=== PATIENT | female | born 2005 | race Caucasian/White ===

== ENCOUNTER 2025-02-01 14:15 | Inpatient (IN) ==
--- NOTE | 2025-02-01 15:20 | Emergency Department Note ---
Impression & Plan Retropharyngeal abscess, CAP (community acquired pneumonia), Strep tonsillitis, Mononucleosis, COVID ED Provider Note CHIEF COMPLAINT: Strep and COVID positive, symptoms not resolving with antibiotic HISTORY OF PRESENTING ILLNESS: The patient is a 19-year-old female who presents to the emergency department reporting testing positive for COVID and strep 2 days ago. She was placed on amoxicillin and has taken 5 doses but reports that her symptoms have been worsening. Notes significant pain in her throat, swelling, difficulty eating and drinking, and SOB. She was also given a dose of steroid without improvement. She denies fever, chest pain, nausea, vomiting, abdominal pain, diarrhea, urinary symptoms. She is tolerating oral secretions and fluids. REVIEW OF SYSTEMS: See HPI for pertinent positives and pertinent negatives. ALLERGIES: NKDA MEDICATIONS: See below PAST MEDICAL HISTORY: See below PHYSICAL EXAM: VITALS: Vitals are noted on the nurses note and reviewed by myself. Vital signs stable. GENERAL: 19-year-old female, ill-appearing, wearing a mask, muffled voice, in no acute distress, nondiaphoretic, well-developed well-nourished. SKIN: Capillary refill less than 2 seconds. No rash on exam. HEENT: Normocephalic. PERRLA. EOMI. Nasal congestion. Mucous membranes moist. TM visualized without abnormality bilaterally. Throat with significant tonsillar edema, tonsillar erythema, uvula is midline. Neck is supple. Bilateral neck swelling worse on left. HEART: Regular rate and rhythm without murmurs gallops or rubs. LUNGS: CTA BL without wheezes, rales or rhonchi. No retractions or accessory muscle use. ABDOMEN: Soft, nontender, without masses or organomegaly. No guarding or rebound tenderness. MUSCULOSKELETAL: No gross musculoskeletal defects. NEURO: Patient was alert and oriented to person place and time. No focal neurological deficits. DIFFERENTIAL DIAGNOSIS: Viral infection, influenza, COVID-19, infectious mononucleosis, tonsillar abscess, bacterial infection, allergic rhinitis, sinusitis, pneumonia, pneumothorax, bronchitis, GERD, cardiac cause, among others. ED COURSE AND MEDICAL DECISION MAKING: HISTORY FROM INDEPENDENT HISTORIAN: The patient herself. MEDICATIONS GIVEN: Decadron 10 mg IV, Toradol 15 mg IV INTERPRETATION OF LABS: I interpreted the labs with full lab results as below in the lab section of this note. Pertinent lab results discussed in the MDM section below. INTERPRETATION OF IMAGING: Imaging studies were interpreted by myself and read by radiology as per the imaging section of this note. CT neck soft tissue - Tonsillar enlargement consistent with infection. Irregularity concerning for abscess noted. Suspected right upper lobe pneumonia. Chronic sinusitis. Chest x-ray - Early pneumonia right midlung ESCALATION OF CARE CONSIDERED: Escalation of care was considered as patient is known COVID and strep positive, on antibiotics, with worsening symptoms and swelling. In the ER was also diagnosed with mono, pneumonia, and a retropharyngeal abscess. The patient was taken to the OR for drainage and admitted to medicine. CONSULTATIONS: On-call ENT provider Dr. Guerrier - Presented the patient to the provider. They evaluated the images confirming a retropharyngeal abscess. They were able to contact the OR team and scheduled the patient for drainage in an hour. Recommended admitting the patient to medicine. On-call hospitalist - Discussed positive COVID and strep diagnoses 2 days ago. In the ER workup shows positive for mono, right upper lobe pneumonia, and retropharyngeal abscess. Discussed my conversation with ENT and that the abscess would be drained this evening. They agreed to admitting the patient to medicine. MDM SUMMARY: I evaluated the 19-year-old female who presents to the ER due to positive strep and COVID diagnoses with worsening symptoms. See HPI and PE above. Patient's vitals are stable and she is afebrile. She is well-appearing and tolerating oral secretions. Decadron and Toradol given for symptom management. Labs obtained showing leukocytosis WBC 13.29. Hemodynamically stable. No electrolyte abnormality. No MARIA VICTORIA. Troponin 4.8. negative. Monoscreen positive. Chest x-ray obtained showing early right midlung pneumonia. CT neck soft tissue shows tonsillar enlargement and irregularity concerning for abscess. CT confirms suspected right upper lobe pneumonia. All laboratory and imaging results were thoroughly reviewed with the patient. A consultation with ENT can be seen in detail above. Patient scheduled to go to the OR in an hour for drainage. Last oral intake was yesterday. Consultation with on-call hospitalist can be seen in detail above. Discussed treatment plan with the patient's mother on the phone. Patient is agreeable to the outlined treatment plan and all questions answered. The patient was admitted in stable condition. DIAGNOSIS: Retropharyngeal abscess, CAP, strep tonsillitis, mononucleosis, COVID The chart was completed utilizing [employer] Speech voice recognition software. Grammatical errors, random word insertions, pronoun errors, and incomplete sentences are an occasional consequence of this system due to software limitations, ambient noise, and hardware issues. Any formal questions or concerns about the content, text, or information contained within the body of this dictation should be directly addressed to the provider for clarification. 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 Beliefs That Will Affect Care: None Current Living Situation Comment: Apartment Feels Safe at Home: Yes Assistive Devices: Contacts and Glasses Allergies Allergies Allergy/AdvReac Type Severity Reaction Status Date / Time No Known Allergies Allergy Verified 02/01/25 18:19 Home Meds Home Medications Medication Instructions Recorded Confirmed levonorgestrel 17.5 mcg/24 hr (up 17.5 mcg intrauterine CONTINOUS 02/01/25 02/01/25 to 5 yrs) 19.5mg intrauterine device (Kyleena) spironolactone 50 mg tablet 0 mg PO HS 02/01/25 02/01/25 Previous Rx's Medication Instructions Recorded amoxicillin 875 mg-potassium 1 tab PO BID #19 tabs 02/02/25 clavulanate 125 mg tablet azithromycin 500 mg tablet 500 mg PO DAILY #1 tab 02/02/25 methylprednisolone 4 mg tablets in 4 mg PO UD #21 ea 02/02/25 a dose pack (Medrol (Issa)) Results & Data (ED) Vital Signs Vital Signs - 24 hr 02/01/25 14:27 Temperature 36.8 C Temperature Source Temporal Artery Scan Pulse Rate 104 H Respiratory Rate 18 Respiratory Effort / Characteristics Non-Labored Spontaneous Respiratory Depth Normal Blood Pressure 126/82 Blood Pressure Mean 96 Blood Pressure Position Sitting Pulse Oximetry 97 Oxygen Delivery Method Room Air Sepsis Recent Fever Within 48 Hours No Sepsis New/Unexplained Change in Mental Status No Sepsis Action Taken by Nursing No Action Required Laboratory Data 02/02/25 06:14 02/02/25 06:14 Lab Results 02/01/25 Range/Units 15:01 WBC 13.29 H (4.8-10.8) K/ul RBC 5.17 (4.20-5.40) M/uL Hgb 15.4 (12.0-16.0) g/dl Hct 46.8 (37.0-47.0) % MCV 90.5 (80.0-100.0) fL MCH 29.8 (25.0-34.0) pg MCHC 32.9 (32.0-36.0) g/dL RDW Std Deviation 41.8 (36.4-46.3) fL RDW Coeff of Ken 12.6 (11.5-14.5) % Plt Count 251 (130-400) K/uL MPV 9.6 (9.4-12.4) fL Neutrophils % (Manual) 49 % Lymphocytes % (Manual) 8 % Reactive Lymphs % (Man) 41 % Monocytes % (Manual) 2 % Neutrophils # (Manual) 6.51 H (1.40-6.50) K/uL Total Absolute Neuts 6.51 H (1.4-6.5) K/uL Lymphocytes # (Manual) 1.06 L (1.2-3.4) K/uL Reactive Lymphs # 5.45 K/uL Total Abs Lymphocytes 6.51 H (1.2-3.4) K/uL Monocytes # (Manual) 0.27 (0.11-0.59) K/uL Sodium 138 (136-145) mmol/L Potassium 4.4 (3.5-5.1) mmol/L Chloride 104 (98-107) mmol/L Carbon Dioxide 27 (21-32) mmol/L Anion Gap 7 (3-11) BUN 9 (6-23) mg/dl Creatinine 0.79 (0.6-1.2) mg/dl Est Cr Clr Drug Dosing 89.8 ml/min eGFR 109.75 BUN/Creatinine Ratio 11.4 (10-20) Glucose 84 (70-99(Fasting)) mg/dl Calcium 9.4 (8.6-10.3) mg/dl Total Bilirubin 0.3 (0.2-1.0) mg/dl AST 30 (13-39) U/L ALT 26 (7-52) U/L Alkaline Phosphatase 70 (34-104) U/L Troponin I High Sens 4.8 (0-14) pg/ml Total Protein 8.0 (6.0-8.3) gm/dl Albumin 4.2 (3.4-5.0) gm/dl Globulin 3.8 (2.5-4.0) gm/dl Albumin/Globulin Ratio 1.1 (0.9-2) HCG, Qual Negative (Negative) Monoscreen Positive A (Negative) Administered Medications Discontinued Medications Acetaminophen (Acetaminophen 325 Mg Tab) 650 mg PO Q4H PRN PRN Reason: Pain or Fever Stop: 03/03/25 21:30 Last Admin: 02/02/25 06:33 Dose: 650 mg Documented By: MARGARITO Azithromycin (Azithromycin 250 Mg Tab) 500 mg PO HS LYNN Stop: 02/06/25 21:30 Last Admin: 02/01/25 22:51 Dose: 500 mg Documented By: MARTA Dexamethasone Sodium Phosphate (DexamethasonePf 10 Mg/Ml Vial) 10 mg IV NOW ONE Stop: 02/01/25 15:48 Last Admin: 02/01/25 16:38 Dose: 10 mg Documented By: YVES Guaifenesin (Guaifenesin 600 Mg Tabcr) 1,200 mg PO Q12 LYNN Stop: 03/03/25 21:30 Last Admin: 02/02/25 08:59 Dose: 1,200 mg Documented By: Admin: 02/01/25 22:01 Dose: 1,200 mg Documented By: MARTA Ampicillin Sodium/Sulbactam Sodium (Unasyn) 3,000 mg in 100 mls @ 200 mls/hr IV NOW STA Stop: 02/01/25 20:49 Last Infusion: 02/01/25 22:33 Dose: Infused Documented By: Admin: 02/01/25 22:02 Dose: 200 mls/hr Documented By: MARTA Sodium Chloride (Nss) 1,000 mls @ 100 mls/hr IV .Q10H LYNN Stop: 02/04/25 21:30 Last Admin: 02/02/25 08:58 Dose: 100 mls/hr Documented By: Infusion: 02/02/25 08:16 Dose: Infused Documented By: Admin: 02/01/25 22:04 Dose: 100 mls/hr Documented By: MARTA Ceftriaxone Sodium (Rocephin) 2,000 mg in 50 mls @ 100 mls/hr IV Q24H LYNN Stop: 02/07/25 05:59 Last Infusion: 02/02/25 08:40 Dose: Infused Documented By: Admin: 02/02/25 07:44 Dose: 100 mls/hr Documented By: CLAU Metronidazole (Flagyl) 500 mg in 100 mls @ 100 mls/hr IV Q8H LYNN; Protocol Stop: 02/11/25 21:30 Last Infusion: 02/02/25 15:46 Dose: Infused Documented By: Admin: 02/02/25 14:33 Dose: 100 mls/hr Documented By: Infusion: 02/02/25 08:17 Dose: Infused Documented By: Admin: 02/02/25 06:28 Dose: 100 mls/hr Documented By: Infusion: 02/01/25 23:46 Dose: Infused Documented By: Admin: 02/01/25 22:49 Dose: 100 mls/hr Documented By: MARTA Dexamethasone 6 mg/ Syringe 1.5 mls @ 1 mls/min IV Q24H LYNN Stop: 03/04/25 08:59 Last Admin: 02/02/25 08:59 Dose: 1 mls/min Documented By: CLAU Ioversol (Optiray 320 100ml) 90 ml IV ONCE ONE Stop: 02/01/25 16:16 Last Admin: 02/01/25 16:15 Dose: 90 ml Documented By: MONIE Ketorolac Tromethamine (Ketorolac Tromethamine 15 Mg/Ml Vial) 15 mg IV NOW STA Stop: 02/01/25 15:48 Last Admin: 02/01/25 16:38 Dose: 15 mg Documented By: YVES Ketorolac Tromethamine (Ketorolac Tromethamine 15 Mg/Ml Vial) 15 mg IV Q6H PRN PRN Reason: Pain Stop: 02/06/25 21:30 Last Admin: 02/01/25 22:01 Dose: 15 mg Documented By: MARTA Oxymetazoline HCl (Oxymetazoline 0.05% 30 Ml Btl) Confirm Administered Dose 150 sprays .ROUTE .STK-MED ONE Stop: 02/01/25 19:03 Last Admin: 02/01/25 20:15 Dose: 150 sprays Documented By: [id number] Spironolactone (Spironolactone 25 Mg Tab) 50 mg PO HS LYNN Stop: 03/03/25 21:30 Last Admin: 02/01/25 22:01 Dose: 50 mg Documented By: MARTA Discharge Plan Visit Data Chief Complaint: Illness Stated Complaint: STREP AND COVID SYMPTOMS NOT RESOLVING W/ANITBIOTI ED Provider: [facility] ED Midlevel Provider: Idalmis Wills Discharge Problem: Retropharyngeal abscess, CAP (community acquired pneumonia), Strep tonsillitis, Mononucleosis, COVID Patient Disposition: Admitted As Inpatient Condition: Good Discharge Instructions Interventions: ED Discharge Assessment Last Done: 02/01/25 18:34 Discharge Problem: CAP (community acquired pneumonia) Qualifiers: Laterality: right Lung location: upper lobe of lung Qualified Code(s): J18.9 - Pneumonia, unspecified organism Mononucleosis Qualifiers: Infectious mononucleosis etiology: unspecified organism
[2025-02-01 15:41] LABS: Alanine Aminotransferase 26.0 U/L (7-52); Albumin Globulin Ratio 1.1 (0.9-2); Albumin Level 4.2 gm/dl (3.4-5.0); Alkaline Phosphatase 70.0 U/L (34-104); Anion Gap 7.0 (3-11); Bilirubin,Total 0.3 mg/dl (0.2-1.0); Blood Urea Nitrogen 9.0 mg/dl (6-23); Calcium 9.4 mg/dl (8.6-10.3); Carbon Dioxide 27.0 mmol/L (21-32); Chloride 104.0 mmol/L (98-107); Creatinine Clr Calc Pharmacy 89.8 ml/min; Globulin 3.8 gm/dl (2.5-4.0); Glucose 84.0 mg/dl (70-99(Fasting)); Potassium 4.4 mmol/L (3.5-5.1); Sodium 138.0 mmol/L (136-145); Total Protein 8.0 gm/dl (6.0-8.3)
--- NOTE | 2025-02-01 15:49 | XRay Report ---
XR chest 1V not portable CLINICAL HISTORY: Chest pain, nonspecific COMPARISON STUDY: None FINDINGS: Heart size and pulmonary vasculature are normal. There is a small area of reticular nodular opacity at the right mid lung, likely early pneumonia. No lobar consolidation or pleural effusion. N o pneumothorax. IMPRESSION: Early pneumonia right midlung. ACT 112: Negative or not required by law. Electronically signed by: Ralph Deng M.D. 02/01/2025 3:47 PM
[2025-02-01 16:11] LABS: Reactive Lymphocytes % (manual) 41 %
[2025-02-01] MEDS: OPTIRAY 320 100ml IV ONE (16:15)
[2025-02-01 16:37] LABS: ALC (manual) 6.51 K/uL (1.2-3.4); ANC (manual) 6.51 K/uL (1.4-6.5); Hematocrit (blood only) 46.8 % (37.0-47.0); Hemoglobin 15.4 g/dl (12.0-16.0); Mean Corpuscular Hemoglobin 29.8 pg (25.0-34.0); Mean Corpuscular Volume 90.5 fL (80.0-100.0); Platelet Count 251 K/uL (130-400); RDW Standard Deviation 41.8 fL (36.4-46.3); Reactive Lymphocytes # (manual) 5.45 K/uL; Red Blood Count 5.17 M/uL (4.20-5.40); White Blood Count 13.29 K/ul (4.8-10.8)
[2025-02-01] MEDS: dexAMETHasone**PF** 10 MG/ML VIAL IV ONE (16:38)
[2025-02-01] MEDS: KETOROLAC TROMETHAMINE 15 MG/ML VIAL IV STA (16:38)
--- NOTE | 2025-02-01 16:44 | CT Scan Report ---
Clinical history: Swollen neck Technique: Axial computed tomography images were obtained of the neck after the administration of intravenous contrast Findings: The adenoid and palatine tonsils are enlarged and demonstrate increased enhancement. There are multiple enlarged parapharyngeal, carotid, and posterior triangle space lymph nodes bilaterally, measuring up to 1.9 cm in short axis. There are small and borderline enlarged parotid and submandibular space lymph nodes also. There is an irregularly-shaped fluid collection with rim enhancement along the inferior aspect of the adenoid tonsil, which could represent an abscess. This measures up to 4.3 x 1.2 x 3.5 cm The salivary glands appear unremarkable. No foreign body is evident There is no sign of epiglottitis or prevertebral inflammation. No definite abnormality of the larynx is noted. The thyroid gland appears normal. There is mucosal thickening in the maxillary, ethmoid, and sphenoid sinuses. The mastoid air cells appear clear. There are mild larger and groundglass opacities in the visualized right upper lobe that may be due to pneumonia. The visualized brain appears normal. No osseous abnormality is seen Impression: 1. Tonsillar enlargement and bilateral neck adenopathy, consistent with infection 2. 4.3 x 3.5 x 1.2 cm irregularly shaped rim-enhancing fluid collection along the inferior aspect of the adenoid tonsil, concerning for an abscess 3. Suspected right upper lobe pneumonia 4. Chronic sinusitis 5. No sign of epiglottitis ACT 112: Positive. There are findings on this exam that require communication between the performing entity and the patient following Patient Test Result Information Act ([place] ACT 112) guidelines. Electronically signed by Gerson Bell 02-01-2025 4:44 PM
--- NOTE | 2025-02-01 17:47 | ENT Consultation ---
Date of Consultation February 01, 2025 Assessment & Plan (1) Retropharyngeal abscess: Plan 19yF with rim-enhancing retropharyngeal abscess in setting of COVID, strep, mono infections. To OR for I+D. The risks and benefits were discussed in detail and the patient elected to proceed. Recommend admission to hospitalist service after. History of Present Illness History of Present Illness 19yF with throat pain, odynophagia progressive over several days. Started on abx Wednesday for positive strep, COVID. Symptoms continued to worsen so presented to ED. WBC 13 CT neck with contrast showed per my read a rim-enhancing retropharyngeal fluid collection, bilateral tonsillitis, bilateral cervical adenopathy. Radiology read also described RUL PNA Stephenson positive Allergies Allergy/AdvReac Type Severity Reaction Status Date / Time No Known Allergies Allergy Verified 02/01/25 18:19 Home Medications Medication Instructions Recorded Confirmed Type amoxicillin 500 mg capsule 500 mg PO BID 02/01/25 02/01/25 History levonorgestrel 17.5 mcg/24 hr (up 17.5 mcg intrauterine CONTINOUS 02/01/25 02/01/25 History to 5 yrs) 19.5mg intrauterine device (Kyleena) spironolactone 50 mg tablet 0 mg PO HS 02/01/25 02/01/25 History Patient History Medical History (Updated 02/01/25 @ 19:02 by Jose Daniel Lacey MD) Exercise-induced asthma Surgical History (Updated 02/01/25 @ 19:02 by Jose Daniel Lacey MD) Hx of wisdom tooth extraction Social History Smoking Status: Never smoker Preferred Language: Japanese Feels Safe at Home: Yes Review of Systems Review of Systems: A 10-point ROS is negative except as noted above Physical Exam 2 Physical Exam: WNWD, NAD EOMI, normal sclera Nares patent, no external deformity External ears normal Normal voice Nonlabored respirations, no stridor Managing secretions AAO x3 Moving all extremities spontaneously Results & Data Vital Signs (Past 12 Hours) Vital Signs Temp Pulse Resp BP Pulse Ox O2 Del Method 02/01/25 14:27 36.8 C 104 H 18 126/82 97 Room Air PG Care Time/CCT Total # of Minutes Spent Total Time Spent with Patient: Total time spent is greater than 50% in coordination of care (as documented) at patient's floor/unit and/or counseling patient: Coding Level of Care Code 50239 IN/OBS CONSULT LVL 4,60M Diagnoses Retropharyngeal abscess J39.0
[2025-02-01] MEDS ORDERED: ONDANSETRON INJ 2 MG/ML 2 ML VIAL ONE (17:59)
[2025-02-01] MEDS ORDERED: PROPOFOL IV EMULSION 10 MG/ML 20 ML VIAL IV ONE (17:59)
[2025-02-01] MEDS ORDERED: LIDOCAINE 2% 2 ML VIAL/AMP(20MG/ML) INFIL ONE (17:59)
[2025-02-01] MEDS ORDERED: DEXAMETHASONE SOD INJ 4 MG/ML VIAL ONE (17:59)
[2025-02-01] MEDS ORDERED: MIDAZOLAM HCL 1 MG/ML 2ML VIAL ONE (18:09)
--- NOTE | 2025-02-01 18:14 | History & Physical Report ---
"Date of Service February 01, 2025 Assessment & Plan (1) Retropharyngeal abscess: (2) CAP (community acquired pneumonia): (3) Strep tonsillitis: (4) Mononucleosis: (5) COVID: Plan 19-year-old female with no significant past medical history presents with progressive dysphagia and odynophagia in the setting of testing positive for strep and COVID 2 days prior to admission. Workup in ED revealed retropharyngeal abscess, right upper lobe pneumonia, and positive mononucleosis. She was admitted for management of such. #Retropharyngeal abscess | CAP RUL | Strep - ENT consulted - going to OR for urgent I&D of retropharyngeal abscess - Ceftriaxone and azithromycin for CAP - Metronidazole for anaerobic coverage of retropharyngeal abscess - Dexamethasone 6 mg daily - Mucinex 1200 mg twice daily - DuoNebs available as needed - Maintenance IV fluids with NSS at 100 mL/h - Pain control: Tylenol as needed, Toradol as needed - Will defer diet postoperatively to ENT #Covid | Mononucleosis - Airborne precautions - Supportive measures as above #Acnecontinue spironolactone 50 mg HS VTE PPx: Low risk. Encourage ambulation. Consider chemoprophylaxis if extended hospitalization Dispo: Admit to med/tele Updated aunt via phone call and roommate in person at bedside History of Present Illness Chief Complaint: Shortness of breath, throat pain/swelling Primary Care Provider: [facility] Lester is a pleasant 19-year-old woman with no significant past medical history. At the time of my exam, the patient was lying in bed in no acute distress with her roommate present at bedside and her aunt on the phone. She states she began developing congestion last Friday 01/26, then developed a sore throat on Monday 01/29. She went to urgent care on Tuesday 01/30 and tested positive for strep and COVID at that time and was given a prescription for amoxicillin and prednisone. She presented to the ED today due to no improvement on antibiotic therapy and progressive dysphagia and odynophagia. She felt feverish/chilled earlier this week. She has not had an appetite for a few days. She has had an intermittent headache that resolves with Advil. She has been fatigued throughout this course. No significant coughing or sputum production. No shortness of breath or difficulty breathing. No chest pain. She denies developing a rash while on amoxicillin. She had many episodes of bronchiolitis as a child and utilizes nebulizers at home frequently. She does not have a history of recurrent bacterial infections. She is fully vaccinated. She take spironolactone daily for acne, no other daily medications. She is fully vaccinated. 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 She drinks alcohol socially and denies any tobacco use including vaping. Vitals on admission significant for mild tachycardia in the low 100s; vitals otherwise stable. Labs on admission are significant for mild leukocytosis with WBC 13.29 and a positive monoscreen. Hemoglobin WNL. Electrolytes WNL. Renal function WNL. Liver enzymes WNL. Troponin negative at 4.8. CXR on admission reveals early pneumonia of the right midlung. Soft tissue neck CT reveals tonsillar enlargement and bilateral neck adenopathy consistent with infection, 4.3 x 3.5 x 1.2 cm irregularly-shaped rim-enhancing fluid collection along the inferior aspect of the adenoid tonsil concerning for an abscess, suspected right upper lobe pneumonia, chronic sinusitis, no signs of e piglottitis. We discussed code status, patient wishes to be a full code. Allergies Allergy/AdvReac Type Severity Reaction Status Date / Time No Known Allergies Allergy Verified 02/01/25 18:19 Home Medications Medication Instructions Recorded Confirmed Type amoxicillin 500 mg capsule 500 mg PO BID 02/01/25 02/01/25 History levonorgestrel 17.5 mcg/24 hr (up 17.5 mcg intrauterine CONTINOUS 02/01/25 02/01/25 History to 5 yrs) 19.5mg intrauterine device (Kyleena) spironolactone 50 mg tablet 0 mg PO HS 02/01/25 02/01/25 History Past Med/Surg History Problem List (Updated 02/01/25 @ 19:10 by Meena Sprague PA-C) COVID Mononucleosis Strep tonsillitis CAP (community acquired pneumonia) Encounter for pre-operative examination Retropharyngeal abscess Medical History (Updated 02/01/25 @ 19:10 by Meena Sprague PA-C) Exercise-induced asthma Surgical History (Updated 02/01/25 @ 19:02 by Jose Daniel Lacey MD) Hx of wisdom tooth extraction Social History Smoking Status: Never smoker Hx Alcohol Use: Yes Hx Substance Use: No Preferred Language: [place] Irish [employer]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 Skin: Warm, dry. No rashes or peripheral edema noted. HEENT: PERRLA. Cervical adenopathy bilaterally. Enlarged tonsils bilaterally. Managing secretions independently. No stridor. Cardiac: Slightly tachycardic rate with regular rhythm without murmurs gallops or rubs. Pulm: Clear to auscultation bilaterally without wheezes, rales or rhonchi. Normal respiratory effort. 97% on room air. Abdominal: Soft, nontender, nondistended. Bowel sounds present. Neuro: A&O x3. No focal neurological deficits. Results & Data Results & Data Vital Signs (Past 12 Hours) Vital Signs Temp Pulse Resp BP Pulse Ox O2 Del Method 02/01/25 14:27 98.2 F 104 H 18 126/82 97 Room Air Laboratory Results Reviewed CBC with differential Reviewed CMP, chemistries Reviewed serology Diagnostic Findings Reviewed CXR Reviewed soft tissue neck CT Supervising Physician Co-Signing Physician Notes Attending Attestation & Admit Note: Chart reviewed in detail, admit care plan d/w PA Meena Sprague. I agree w/ the benson components of her admission documentation. Of note - shortly after Ms Sprague placed admission orders, the patient was taken urgently to the OR with Dr Guerrier from ENT for I/D of her retropharyngeal abscess. Thus, I was not able to perform a bedside visit or exam since she was no longer in the emergency department. 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 Symptoms persisted into this week and she was ultimately diagnosed with COVID-19 as well as strep throat. Placed on amoxicillin & prednisone. Her throat symptoms persisted despite the above, and she later developed dysphagia. She came to the ER this evening and, in addition to the recent COVID & strep, monospot was positive. CT neck showed a retropharyngeal abscess as well as infiltrates of the right lung upper lobe. No epiglottitis was seen. ENT was consulted, and Dr Guerrier advised I/D of the abscess. PMH/PSH/allergies/meds/sochx - reviewed Vitals stable, O2 sats stable Labs reviewed - Prentiss+, atypical lymphs on CBC, leukocytosis, HCG negative Imaging reviewed A/P: 1. Strep & Prentiss pharyngitis; COVID can also contribute 2. Retropharyngeal abscess in the setting of #1 above 3. COVID-19 4. Right-sided pneumonia - likely viral - both COVID and Prentiss can cause such; can't rule out bacterial process of the right lung, however 5. Sinus disease on CT - likely due to COVID infection -To OR with Dr Guerrier for I/D of abscess -airborne isolation -dexamethasone steroid for COVID; this will also help pharyngeal swelling -rocephin/azithromycin/flagyl to cover the sinuses, throat, and right lung -pain meds prn -IV fluids -defer diet to ENT Chapo Francisco MD PG Care Time/CCT Total # of Minutes Spent Total Time Spent with Patient: Total time spent is greater than 50% in coordination of care (as documented) at patient's floor/unit and/or counseling patient: Coding Level of Care Code 58863 INT INP/OBS CARE 3/75MIN Diagnoses Retropharyngeal abscess J39.0 CAP (community acquired pneumonia) J18.9 Strep tonsillitis J03.00 Mononucleosis B27.90 COVID U07.1"
[2025-02-01] MEDS ORDERED: ROCURONIUM BROMIDE 10 MG/ML 5 ML VIAL IV ONE (18:31)
[2025-02-01] MEDS ORDERED: SUCCINYLCHOLINE CHLORIDE 20 MG/ML 10 ML VIAL IV ONE (18:44)
[2025-02-01] MEDS ORDERED: ONDANSETRON INJ 2 MG/ML 2 ML VIAL IV PRN ×2 (19:02→21:31)
[2025-02-01] MEDS ORDERED: ATROPINE SULFATE 0.1 MG/ML 10ML SYR IV PRN (19:02)
[2025-02-01] MEDS ORDERED: PROMETHAZINE HCL 6.25 MG in SODIUM CHLORIDE 0.9% 50 ML IV PRN (19:02)
[2025-02-01] MEDS ORDERED: KETOROLAC 30 MG/ML VIAL IV PRN (19:02)
--- NOTE | 2025-02-01 19:02 | Anesthesiology Consultation ---
Date of Service February 01, 2025 Assessment & Plan (1) Encounter for pre-operative examination: Chart Review Chart Review: Acceptable Risk for Surgery History Surgery Operation Date: 02/01/25 18:00 Proposed Procedures p Incision and Drainage Retropharyngeal Abscess - Gamal Guerrier MD Height/Weight Height: 5 ft 2 in Weight: 50.7 kg Allergies Allergy/AdvReac Type Severity Reaction Status Date / Time No Known Allergies Allergy Verified 02/01/25 18:19 Medications Home Medications Medication Instructions Recorded Confirmed Last Taken amoxicillin 500 mg capsule 500 mg PO BID 02/01/25 02/01/25 02/01/25 08:00 levonorgestrel 17.5 mcg/24 hr (up 17.5 mcg intrauterine CONTINOUS 02/01/25 02/01/25 Unknown to 5 yrs) 19.5mg intrauterine device (Kyleena) spironolactone 50 mg tablet 0 mg PO HS 02/01/25 02/01/25 01/31/25 NPO Last Intake of Fluids Comment: Early today Last Intake of Solids Comment: Yesterday Past Medical History Medical History (Updated 02/01/25 @ 19:02 by Jose Daniel Lacey MD) Exercise-induced asthma Exercise / Class Metabolic Activity 1 > 8 Run/Swim/Ski/Tennis Past Surgical History Surgical History (Updated 02/01/25 @ 19:02 by Jose Daniel Lacey MD) Hx of wisdom tooth extraction Past Anesthesia History No Hx of Anesthesia Complications History of PONV No Hx of PONV and No Hx of Motion Sickness Social History Smoking Status: Never smoker Physical Exam Vital Signs Last Vital Signs Temp 36.8 C 02/01/25 14:27 Pulse 100 H 02/01/25 18:34 Resp 16 02/01/25 18:34 BP 129/83 02/01/25 18:34 Pulse Ox 97 02/01/25 18:34 O2 Del Method Room Air 02/01/25 18:34 Testing Laboratory Results 02/01/25 15:01 02/01/25 15:01
[2025-02-01 19:46] LABS: Pregnancy Test, Serum Negative (Negative)
[2025-02-01] MEDS ORDERED: SUGAMMADEX SODIUM 200 MG/2 ML VIAL IV ONE (20:12)
[2025-02-01] MEDS: OXYMETAZOLINE 0.05% 30 ML BTL ONE (20:15)
[2025-02-01] MEDS ORDERED: LARYING-O-JET KIT (LTA) ONE (20:28)
--- NOTE | 2025-02-01 20:29 | Operative Report ---
PG Post Operative Report Pre & Post Diagnosis Operation Date: 02/01/25 18:00 <No data on this case meets the specified criteria> 1. Retropharyngeal abscess I identified the patient and participated in the time-out.: Yes Procedure Operation Date: 02/01/25 18:00 <No data on this case meets the specified criteria> 1. Incision and drainage retropharyngeal abscess Surgeon Gamal Guerrier MD Bi Consultant none Estimated Blood Loss 5 Findings See Below 1. Turbid fluid retropharynx 2. Adenoid and tonsillar hypertrophy with exudate Specimens none Anesthesia Type General Complications none Indications The patient is a 19yF with a history, imaging, and exam consistent with a retropharyngeal abscess. It was recommended that the patient undergo incision and drainage in the operating room. The risks and benefits of the procedure were discussed in detail, and the patient elected to proceed. Informed consent was obtained. Description of Procedure The patient was identified in the preoperative holding area and brought back to the operating room. The patient was placed supine on the operating room table. After the successful induction of general orotracheal anesthesia by the Anesthesia team, the patient was prepped and draped in the usual fashion for incision and drainage of a retropharyngeal abscess. A surgical timeout was performed. The head of the bed was turned 90 degrees and a shoulder roll was placed. The patient's neck was gently extended. A McIvor mouth gag was gently inserted into the oral cavity and used to expose the oropharynx. It was suspended from a Becker stand. The tonsils were noted to be 3+ bilaterally. The FiO2 was confirmed to be below 30%. The posterior pharyngeal wall was boggy. An vertical incision was made in the posterosuperior oropharynx. Turbid drainage was noted. Cultures were taken. Hemostasis was achieved using afrin soaked pledgets and suction cautery. Thick drainage was noted over the adenoid tissue which was suctioned clear. The nasal cavity, nasopharynx, oral cavity, and oropharynx were irrigated with copious saline and suctioned clear. Hemostasis was noted. An orogastric tube was used to decompress the stomach and removed from the patient. Laryngotracheal anesthesia was administered. The McIvor mouth gag was then taken out of suspension and removed from the patient's oral cavity. No lip or dental injuries were noted. The patient was then turned over to the anesthesia team and extubated without difficulty. The patient was transferred to the PACU in good condition. I was present and performed the entire procedure myself. I attest to the content of the Intraoperative Record and any orders documented therein. Any exceptions are noted below.
--- NOTE | 2025-02-01 21:18 | Anesthesiology Progress Note ---
Date of Service February 01, 2025 Anesthesia Post Procedure Vital Signs Vital Signs: Temp Pulse Pulse Pulse Resp BP BP 02/01/25 21:10 37.1 C 96 H 13 114/75 02/01/25 21:00 90 14 131/80 02/01/25 20:50 96 H 15 121/80 02/01/25 20:43 36.2 C L 95 H 19 125/74 02/01/25 19:11 37.3 C 96 H 18 02/01/25 18:34 100 H 16 129/83 02/01/25 18:00 89 16 02/01/25 14:27 36.8 C 104 H 18 126/82 BP Pulse Ox O2 Del Method O2 Flow Rate 02/01/25 21:10 95 Room Air 02/01/25 21:00 98 Room Air 02/01/25 20:50 99 Oxymask 4 02/01/25 20:43 99 Oxymask 4 02/01/25 19:11 128/86 95 Room Air 02/01/25 18:34 97 Room Air 02/01/25 18:00 131/74 98 Room Air 02/01/25 14:27 97 Room Air Transfer of Care Handoff Completed per policy Notes Mental Status: alert / awake / arousable Patient Amnestic to Procedure: Yes Nausea / Vomiting: adequately controlled Pain: adequately controlled Airway Patency, RR, SpO2: stable & adequate BP & HR: stable & adequate Hydration State: stable & adequate Anesthetic Complications: no major complications apparent
[2025-02-01] MEDS ORDERED: ALBUT/IPRATROP 3MG/0.5MG NEB 3 ML VIAL NEB PRN (21:31)
[2025-02-01] MEDS ORDERED: MELATONIN 3 MG TAB PO PRN (21:31)
[2025-02-01] MEDS: guaiFENesin 600 MG TABCR PO SCH (22:01)
[2025-02-01] MEDS: SPIRONOLACTONE 25 MG TAB PO SCH (22:01)
[2025-02-01] MEDS: KETOROLAC TROMETHAMINE 15 MG/ML VIAL IV PRN (22:01)
[2025-02-01] MEDS: AMPICILLIN/SULBACTAM SOD 3,000 MG/100 ML BAG IV STA (22:02)
[2025-02-01] MEDS: SODIUM CHLORIDE 0.9% 1,000 ML IV SCH (22:04)
[2025-02-01] MEDS: metroNIDAZOLE 500 MG/100 ML BAG IV SCH (22:49)
[2025-02-01] MEDS: AZITHROMYCIN 250 MG TAB PO SCH (22:51)
[2025-02-02] MEDS: ACETAMINOPHEN 325 MG TAB PO PRN (06:33)
[2025-02-02 07:09] LABS: INR 1.1 (0.9-1.1); Partial Thromboplastin Time 30 Seconds (21-31); Prothrombin Time 11.1 Seconds (9.0-12.0)
[2025-02-02] MEDS: cefTRIAXone SODIUM 2,000 MG/50 ML BAG IV SCH (07:44)
--- NOTE | 2025-02-02 07:51 | Ears,Nose,Throat Progress Note ---
Date of Service February 02, 2025 Assessment & Plan (1) Retropharyngeal abscess: Plan 19yF with rim-enhancing retropharyngeal abscess in setting of COVID, strep, mono infections s/p I+D 02/01/25. Doing well, tolerating clears, pain controlled. Exam with full ROM of neck today. -Continue abx per primary team - would ensure coverage of gram positives and anaerobes -Decadron 10mg Q8H x3 doses -OK to advance to soft diet from ENT standpoint -If continued improvement, ok to d/c home later today vs. tomorrow from ENT standpoint. Would recommend 10 days abx (augmentin or similar) and medrol dosepak on discharge. F/u 1-2 weeks - [phone] Admission and Anticipated Discharge Date Admission Date: February 01, 2025 Subjective ESTEPHANIA o/n. Feeling better, minimal pain. Tolerating clears. Physical Exam Physical Exam: WNWD, NAD Nonlabored respirations, no stridor Oral cavity clear, no trismus OP with 3+ tonsils with erythema, exudate Posterior pharyngeal incision with healing eschar, no bleeding Full ROM of neck Results & Data Vital Signs (Past 12 Hours) Vital Signs Temp Pulse Pulse Pulse Resp BP Pulse Ox 02/02/25 07:06 36.6 C 80 19 105/69 97 02/02/25 03:25 36.5 C 80 16 107/60 97 02/01/25 23:35 36.4 C L 91 H 20 107/67 96 02/01/25 21:32 93 H 02/01/25 21:31 37 C 97 H 18 112/80 96 02/01/25 21:10 37.1 C 96 H 13 114/75 95 02/01/25 21:00 90 14 131/80 98 02/01/25 20:50 96 H 15 121/80 99 02/01/25 20:43 36.2 C L 95 H 19 125/74 99 O2 Del Method O2 Flow Rate 02/02/25 07:06 Room Air 02/02/25 03:25 Room Air 02/01/25 23:35 Room Air 02/01/25 21:32 02/01/25 21:31 Room Air 02/01/25 21:10 Room Air 02/01/25 21:00 Room Air 02/01/25 20:50 Oxymask 4 02/01/25 20:43 Oxymask 4 PG Care Time/CCT Total # of Minutes Spent Total Time Spent with Patient: Total time spent is greater than 50% in coordination of care (as documented) at patient's floor/unit and/or counseling patient: Coding Level of Care Code None Diagnoses Retropharyngeal abscess J39.0
[2025-02-02] MEDS: dexAMETHasone 6 MG in SYRINGE 0 ML IV SCH (08:59)
[2025-02-02 09:17] LABS: Hematocrit (blood only) 43.5 % (37.0-47.0); Hemoglobin 14.4 g/dl (12.0-16.0); Mean Corpuscular Hemoglobin 30.7 pg (25.0-34.0); Mean Corpuscular Volume 92.8 fL (80.0-100.0); Platelet Count 273 K/uL (130-400); RDW Standard Deviation 42.6 fL (36.4-46.3); Red Blood Count 4.69 M/uL (4.20-5.40); White Blood Count 10.72 K/ul (4.8-10.8)
[2025-02-02 09:22] LABS: Anion Gap 5.0 (3-11); Blood Urea Nitrogen 10.0 mg/dl (6-23); Calcium 8.8 mg/dl (8.6-10.3); Carbon Dioxide 27.0 mmol/L (21-32); Chloride 105.0 mmol/L (98-107); Creatinine Clr Calc Pharmacy 109.2 ml/min; Glucose 120.0 mg/dl (70-99(Fasting)); Potassium 4.8 mmol/L (3.5-5.1); Sodium 137.0 mmol/L (136-145)
--- NOTE | 2025-02-02 17:44 | Discharge Summary ---
"Discharge Summary Date of Service February 02, 2025 Principal Dx & Hospital Course #1 = Principal Diagnosis (1) Retropharyngeal abscess: (2) CAP (community acquired pneumonia): (3) Strep tonsillitis: (4) Mononucleosis: (5) COVID: Plan 19-year-old female with no significant past medical history presents with progressive dysphagia and odynophagia in the setting of testing positive for strep and COVID 2 days prior to admission. Workup in ED revealed retropharyngeal abscess, right upper lobe pneumonia, and positive mononucleosis. She was admitted for management of such. School note was provided on discharge to excuse her absence from class this week. #Retropharyngeal abscess | CAP RUL | Strep pharyngitis - ENT consulted - s/p I&D of retropharyngeal abscess - Treated with IV ceftriaxone, azithromycin, metronidazole for CAP and anaerobic coverage of retropharyngeal abscess while admitted. Discussed use of cefdinir/Flagyl versus Augmentin for her oral antibiotics on discharge. Discussed risk of developing a skin rash with Augmentin while having mono. For ease of antibiotic compliance, patient elected to take Augmentin - will go to [facility] on campus if she develops a rash - Continue Azithromycin 500 mg daily x 1 more day for total of 3 day course for PNA - Start Augmentin 875-125 mg BID through 02/11 for 10 day total antibiotic course for PNA, Strep pharyngitis, and retropharyngeal abscess - Treated with dexamethasone 6 mg daily while admitted. Discharged with Medrol Dosepak - Tolerated advancement to soft-diet. Instructed to advance diet as tolerated back to her usual diet - Can use supportive measures such as Tylenol, Mucinex, throat lozenges as needed at home - Counseled on avoiding alcohol use while taking antibiotics and allowing body to recover - Follow-up with ENT outpatient in 1-2 weeks #Covid | Mononucleosis - Airborne precautions - Supportive measures as above - Counseled on avoiding sports/strenuous activity x 4 weeks due to risk of enlarged spleen/spleen rupture with acute mono #Acnecontinue spironolactone 50 mg HS VTE PPx: Low risk. Short length of stay. Encouraged ambulation Dispo: Discharged home 02/02 Notes For Next Care Provider Follow-up with ENT in 1-2 weeks Follow-up with [facility] in 1-2 weeks Medication Changes From Visit Azithromycin 500 mg daily x 1 Augmentin 875-125 mg twice daily through 02/11 Medrol Dosepak Admission HPI Per Admitting Provider Lester is a pleasant 19-year-old woman with no significant past medical history. At the time of my exam, the patient was lying in bed in no acute distress with her roommate present at bedside and her aunt on the phone. She states she began developing congestion last Friday 01/26, then developed a sore throat on Monday 01/29. She went to urgent care on Tuesday 01/30 and tested positive for strep and COVID at that time and was given a prescription for amoxicillin and prednisone. She presented to the ED today due to no improvement on antibiotic therapy and progressive dysphagia and odynophagia. She felt feverish/chilled earlier this week. She has not had an appetite for a few days. She has had an intermittent headache that resolves with Advil. She has been fatigued throughout this course. No significant coughing or sputum production. No shortness of breath or difficulty breathing. No chest pain. She denies developing a rash while on amoxicillin. She had many episodes of bronchiolitis as a child and utilizes nebulizers at home frequently. She does not have a history of recurrent bacterial infections. She is fully vaccinated. She take spironolactone daily for acne, no other daily medications. She is fully vaccinated. 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 She drinks alcohol socially and denies any tobacco use including vaping. Vitals on admission significant for mild tachycardia in the low 100s; vitals otherwise stable. Labs on admission are significant for mild leukocytosis with WBC 13.29 and a positive monoscreen. Hemoglobin WNL. Electrolytes WNL. Renal function WNL. Liver enzymes WNL. Troponin negative at 4.8. CXR on admission reveals early pneumonia of the right midlung. Soft tissue neck CT reveals tonsillar enlargement and bilateral neck adenopathy consistent with infection, 4.3 x 3.5 x 1.2 cm irregularly-shaped rim-enhancing fluid collection along the inferior aspect of the adenoid tonsil concerning for an abscess, suspected right upper lobe pneumonia, chronic sinusitis, no signs of epiglottitis. We discussed code status, patient wishes to be a full code. Discharge Exam General: No acute distress, nondiaphoretic, well-developed, well-nourished. Skin: Warm, dry. No rashes or peripheral edema noted. HEENT: PERRLA. Cervical adenopathy bilaterally, improved from yesterday. Cardiac: Slightly tachycardic rate in 90s with regular rhythm without murmurs gallops or rubs. Pulm: Clear to auscultation bilaterally without wheezes, rales or rhonchi. Normal respiratory effort. 98% on room air. Abdominal: Soft, nontender, nondistended. Bowel sounds present. Neuro: A&O x3. No focal neurological deficits. Discharge Plan Discharge Items Patient Disposition: Home - Self-Care Reason For Visit: RETROPHARYNGEAL ABSCESS, RUL PNA Discharge Diagnosis: Retropharyngeal abscess, right upper lobe pneumonia, strep, COVID, mono Condition on Discharge: Good Activity: Per Instructions section Non-emergency contact: Primary Care Provider Call non-emergency contact if: you have any medication questions, your symptoms worsen, your pain is not controlled and you have a fever Follow-up/Referrals: Gamal Guerrier MD [Physician] - (Follow-up in 1-2 weeks- Dr. Guerrier office will reach out to you to schedule follow up.) [facility] [Primary Care Provider] - (Follow-up in 1 week) Diet: Regular Addtl Attending Provider Instructions: Lester, You were admitted to the hospital with a retropharyngeal abscess, right-upper lobe pneumonia, strep, Covid, and mono (mononucleosis). You had an incision and drainage of your retropharyngeal abscess with Dr. Guerrier. You have well- tolerated your diet advancement to a soft diet. You will continue on antibiotics and supportive therapy at home. Upon discharge from the hospital: * Take azithromycin 500 mg once daily x 1 additional day (tomorrow, 02/03). This will complete your course of azithromycin. * Take Augmentin twice daily through 02/11 to complete a 10-day total antibiotic course. This is to treat both your retropharyngeal abscess and your pneumonia. It is important to complete this course of antibiotics even if you feel better. Not finishing your antibiotics can result in the infection returning in/or can make future infections harder to treat. Side effects of oral antibiotics include GI upsetI recommend taking your antibiotics with food to prevent any nausea/vomiting/diarrhea. * Follow the package insert instructions for the Medrol Dosepak. This will be a 6-day steroid taper. * Continue a soft diet and you can advance your diet as tolerated back to your usual diet. Stay hydrated. * It is essential that you rest for the next few days to allow your body to recover. It is important to refrain from alcohol for the next 10 days while recovering and taking antibiotics. * Review the handout detailing mononucleosis that I attached to your discharge packet. Cecil can cause your spleen to swell. Injury to a swollen spleen can cause the spleen to ruptureresulting in life-threatening internal bleeding. To prevent this from happening, it is important to avoid sports and strenuous activity for at least 4 weeks. Prolonged fatigue is common with an acute monoinfection. You can expect the fatigue to persist for several weeksensure you rest as needed. * You can use [id number] supportive measures like Tylenol for fever/pain/body aches, Mucinex-D for congestion, and throat lozenges for irritation. * As we discussed, you may develop a rash while taking amoxicillin with your current monoinfection. This skin rash is not serious as it is not a sign of a true allergic reaction and will fade in about a week. If you do develop a rash while taking amoxicillin, please go to [facility] on campus to be evaluated. * Follow-up with [facility] in 1-2 weeks. * Follow-up with Dr. Guerrier from ENT in 1-2 weeks. Please return to the hospital if you experience any of the following: Fever of 101 F or higher, new or worsening difficulty breathing or swallowing, neck swelling/pain/redness that worsens or does not improve, severe or worsening abdominal pain, persistent nausea with vomiting, chest pain, passing out, or any other symptoms concerning for you. It was a pleasure taking care of you while you were in the hospital, Meena Sprague PA-C Pending Studies at Discharge: No Stand-Alone Forms: [facility], Work/School Release, Smoking Cessation Medications and DC Order Prescriptions: New amoxicillin-pot clavulanate 875-125 mg tablet 1 tab PO BID Qty: 19 0RF methylprednisolone [Medrol (Issa)] 4 mg tablets,dose pack 4 mg PO UD Qty: 21 0RF Rx Instructions: Follow package insert instructions. azithromycin 500 mg tablet 500 mg PO DAILY Qty: 1 0RF Continued spironolactone 50 mg Tablet 0 mg PO HS Rx Instructions: PT UNSURE OF STRENGTH, UNABLE TO VERIFY Kyleena 17.5 mcg/24 hr (5 yrs) 19.5 mg Intrauterine Device 17.5 mcg INTRAUTERINE CONTINOUS Discontinued amoxicillin 500 mg Capsule 500 mg PO BID Rx Instructions: STARTED 01/30/25 FOR 10 DAYS Discharge Orders: Discharge Order (Routine); Ordered 02/02/25 Ordered By: Meena Green/Other Patient Handouts: ED Mononucleosis Admission Data Admit Date/Time: 02/01/25 18:48 Attending Provider: Katherine Chandler Admit Provider: Chapo Francisco Primary Care Provider: [facility] Other Providers: Chapo Francisco Other Interventions: Discharge Summary Assessment (RN) Last Done: 02/02/25 15:54 Hospital Stay Data Consultations 02/01/25 18:27 ED Decision to Admit Stat Procedures Performed Operation Date: 02/01/25 18:00 Actual Procedures p Incision and Drainage Retropharyngeal Abscess(Not Applicable) - Gamal cole MD Diagnostic Imagining Performed Chest X-Ray 02/01/25 14:30 XR chest 1V not portable CLINICAL HISTORY: Chest pain, nonspecific COMPARISON STUDY: None FINDINGS: Heart size and pulmonary vasculature are normal. There is a small area of reticular nodular opacity at the right mid lung, likely early pneumonia. No lobar consolidation or pleural effusion. No pneumothorax. IMPRESSION: Early pneumonia right midlung. ACT 112: Negative or not required by law. Electronically signed by: Ralph Deng M.D. 02/01/2025 3:[address] 02/01/25 15:47 Clinical history: Swollen neck Technique: Axial computed tomography images were obtained of the neck after the administration of intravenous contrast Findings: The adenoid and palatine tonsils are enlarged and demonstrate increased enhancement. There are multiple enlarged parapharyngeal, carotid, and posterior triangle space lymph nodes bilaterally, measuring up to 1.9 cm in short axis. There are small and borderline enlarged parotid and submandibular space lymph nodes also. There is an irregularly-shaped fluid collection with rim enhancement along the inferior aspect of the adenoid tonsil, which could represent an abscess. This measures up to 4.3 x 1.2 x 3.5 cm The salivary glands appear unremarkable. No foreign body is evident There is no sign of epiglottitis or prevertebral inflammation. No definite abnormality of the larynx is noted. The thyroid gland appears normal. There is mucosal thickening in the maxillary, ethmoid, and sphenoid sinuses. The mastoid air cells appear clear. There are mild larger and groundglass opacities in the visualized right upper lobe that may be due to pneumonia. The visualized brain appears normal. No osseous abnormality is seen Impression: 1. Tonsillar enlargement and bilateral neck adenopathy, consistent with infection 2. 4.3 x 3.5 x 1.2 cm irregularly shaped rim-enhancing fluid collection along the inferior aspect of the adenoid tonsil, concerning for an abscess 3. Suspected right upper lobe pneumonia 4. Chronic sinusitis 5. No sign of epiglottitis ACT 112: Positive. There are findings on this exam that require communication between the performing entity and the patient following Patient Test Result Information Act ([place] ACT 112) guidelines. Electronically signed by Gerson Bell 02-01-2025 4:44 PM Pending Results Patient Have Any Pending Studies at Discharge: No Discharge Instructions Given to Patient (Per Discharging Provider) Lester, You were admitted to the hospital with a retropharyngeal abscess, right-upper lobe pneumonia, strep, Covid, and mono (mononucleosis). You had an incision and drainage of your retropharyngeal abscess with Dr. Guerrier. You have well- tolerated your diet advancement to a soft diet. You will continue on antibiotics and supportive therapy at home. Upon discharge from the hospital: * Take azithromycin 500 mg once daily x 1 additional day (tomorrow, 02/03). This will complete your course of azithromycin. * Take Augmentin twice daily through 02/11 to complete a 10-day total antibiotic course. This is to treat both your retropharyngeal abscess and your pneumonia. It is important to complete this course of antibiotics even if you feel better. Not finishing your antibiotics can result in the infection returning in/or can make future infections harder to treat. Side effects of oral antibiotics include GI upsetI recommend taking your antibiotics with food to prevent any nausea/vomiting/diarrhea. * Follow the package insert instructions for the Medrol Dosepak. This will be a 6-day steroid taper. * Continue a soft diet and you can advance your diet as tolerated back to your usual diet. Stay hydrated. * It is essential that you rest for the next few days to allow your body to recover. It is important to refrain from alcohol for the next 10 days while recovering and taking antibiotics. * Review the handout detailing mononucleosis that I attached to your discharge packet. Cecil can cause your spleen to swell. Injury to a swollen spleen can cause the spleen to ruptureresulting in life-threatening internal bleeding. To prevent this from happening, it is important to avoid sports and strenuous activity for at least 4 weeks. Prolonged fatigue is common with an acute monoinfection. You can expect the fatigue to persist for several weeksensure you rest as needed. * You can use [id number]-[id number]-sapkhln supportive measures like Tylenol for fever/pain/body aches, Mucinex-D for congestion, and throat lozenges for irritation. * As we discussed, you may develop a rash while taking amoxicillin with your current monoinfection. This skin rash is not serious as it is not a sign of a true allergic reaction and will fade in about a week. If you do develop a rash while taking amoxicillin, please go to [facility] on campus to be evaluated. * Follow-up with [facility] in 1-2 weeks. * Follow-up with Dr. Guerrier from ENT in 1-2 weeks. Please return to the hospital if you experience any of the following: Fever of 101 F or higher, new or worsening difficulty breathing or swallowing, neck swelling/pain/redness that worsens or does not improve, severe or worsening abdominal pain, persistent nausea with vomiting, chest pain, passing out, or any other symptoms concerning for you. It was a pleasure taking care of you while you were in the hospital, Meena Sprague PA-C Supervising Physician Co-Signing Physician Notes PA Supervision Note: I personally saw and examined the patient. I verified all benson points and agree with ANGEL Sprague with the following exceptions and/or additions: S-Pt seen within 24 hours of admission and is now status post retropharyngeal abscess I&D. Feeling much better, tolerating regular diet. Able to swallow. 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 Symptoms persisted into this week and she was ultimately diagnosed with COVID-19 as well as strep throat.Placed on amoxicillin & prednisone.Her throat symptoms persisted despite the above, and she later developed dysphagia. She was admitted and in addition to the recent positive COVID & strep, monospot was also positive. CT neck showed a retropharyngeal abscess as well as infiltrates of the right lung upper lobe. No epiglottitis was seen. ENT was consulted, and Dr Guerrier advised I/D of the abscess and performed incision and drainage. Cultures pending at the time of discharge Leukocytosis resolved, tolerating regular diet and antibiotics. #Strep & Cecil pharyngitis/COVID/retropharyngeal abscess-continue Augmentin, azithromycin, steroids, follow-up with ENT. Culture pending #Right-sided pneumonia - likely viral - both COVID and Cecil can cause such; can't rule out bacterial process of the right lung, however-finish out Augmentin and azithromycin in case of bacterial pneumonia #Sinus disease on CT - likely due to COVID infection Stable for discharge home Total Time Total Time Spent Total Time Spent (In Minutes): Greater than 30 minutes spent completing this discharge process including direct patient care, medication reconciliation, documentation, review of labs and images, and coordination of care. Coding Level of Care Code 26546 INP/OBS DISCH >30 MIN Diagnoses Retropharyngeal abscess J39.0 CAP (community acquired pneumonia) J18.9 Strep tonsillitis J03.00 Mononucleosis B27.90 COVID U07.1"
== END 2025-02-02 16:32 | disposition home or self-care (01) | DRG 143 ==
LOC: ED 14:15 → 2S 18:34 → SUATTDRO 18:48